=== PATIENT | male | born 1975 | race Caucasian/White ===

== ENCOUNTER 2024-02-26 05:50 | Emergency (ER) | payer OTHER, SELFPAY ==
--- NOTE | 2024-02-26 06:13 | ED.GENMED ---
History of Present Illness
General
Chief Complaint: Chest Pain
Source: patient
Exam Limitations: none
Time Seen by Provider: 02/26/24 06:03
Nursing documentation reviewed up to this point in time: agreed with
Travel History
Have you had any contact with someone who has COVID-19?: No
Do you have any symptoms of coronavirus? Fever > 100 degrees, chills, cough, shortness of breath, sore throat, loss of taste or smell, muscle aches, or headache?: No
History of Present Illness
History of Present Illness:
48-year-old male with no reported chronic medical issues who presents to the emergency room for evaluation of chest pain. Patient reports that he had onset at around 3:30 AM and symptoms have been constant since that time. He reports a burning
sensation in the left chest area, also reports 'feeling a knot' in the left shoulder and slightly in the left side of the neck although he says he has had this before related to musculoskeletal pain in the shoulder. He denies any significant
shortness of breath. He says he did have some nausea and an episode of dry heaving this morning. Denies abdominal pain. He denies any recent fevers or chills. Only other complaint on review of systems was that he will occasionally have a
'scratchy throat' particularly in the morning. He says that initially thought his symptoms could be heartburn but because they were persisting throughout the morning after about 2 hours he decided he should come in to be evaluated. He denies any
known history of heart problems.
Past History
Social History
Tobacco: Non-smoker
Personal:
Employment: Employed
Review of Systems
Review of Systems
All Other Systems: ROS reviewed and negative except as documented in HPI and ROS
Constitutional: Denies fever
Respiratory: Denies cough or trouble breathing
Cardiac: Reports chest pain; Denies palpitations
ABD/GI: Reports nausea and vomiting (Dry heave); Denies abdominal pain
Musculoskeletal: Reports joint pain (Radiation to the shoulder) and neck pain (Radiation of the neck); Denies back pain
Neurological: Denies dizzy or headache
Phy Exam
Physical Exam
Physical Exam:
General: Awake, alert; no acute distress
Head: Normocephalic, atraumatic
Eyes: Conjunctiva normal, sclera anicteric
Throat: Airway intact, handling secretions
Neck: Trachea midline, supple without meningismus
Lungs: Clear to auscultation bilaterally, no wheezing, rales, rhonchi
Heart: Regular rate and rhythm, no murmurs, gallops, or rubs
Abd: Soft, non distended, nontender
Neuro: Cranial nerves grossly intact, speech fluid
Skin: no rash
Extremities: No reproducible tenderness in the left shoulder; no edema in extremities, equal pulses in all extremities
Scores
Heart Failure Risk
Heart Failure Risk Score: Not Applicable
Heart Score for Chest Pain Patients
STEMI patient?: No
History: Slightly or Non-Suspicious
ECG: Normal
Age: >45 - <65 years
Risk Factors: 1 or 2 Risk Factors
Troponin: </= Normal Limit
Heart Score for Chest Pain Patients: 2
Heart Score Risk: 2.5% MACE over next 6 weeks
Withdrawal Assessment of Alcohol
Withdrawal Assessment Completed?: Not applicable
Course
Orders/Labs/Results
Orders:
Orders
02/26/24 05:51
EKG [Electrocardiogram (*1)] Urgent
Reason for Study: Chest Pain
EKG- Treatment ONCE
02/26/24 06:08
CR Chest - 2 Views Urgent
Comment:
Reason For Exam: chest pain
02/26/24 06:53
Complete Blood Count/With Diff Urgent
Comprehensive Metabolic Panel Urgent
Lipase Urgent
Troponin I Urgent
02/26/24 08:03
Mag Hydrox/Al Hydrox/Simeth [Maalox] 30 ml Phenobarb/Hyoscy/Atropine/Scop [] 10 ml Viscous Lidocaine 2% [Xylocaine Viscous Cup] 10 ml PO NOW
Pantoprazole [Protonix IV] 40 mg IV NOW STA
02/26/24 08:10
Mag Hydrox/Al Hydrox/Simeth [Maalox] 30 ml .ROUTE .STK-MED ONE
Phenobarb/Hyoscy/Atropine/Scop [] 10 ml .ROUTE .STK-MED ONE
Viscous Lidocaine 2% [Xylocaine Viscous Cup] 15 ml .ROUTE .STK-MED ONE
02/26/24 09:05
Troponin I Urgent
Abnormal Lab Results
02/26/24
06:53
MCV 79.8 L fL
(80.0-94.0)
Absolute Lymphs (auto) 1.0 L 10^3/uL
(1.2-3.4)
Neutrophils % 75.4 H %
(42.2-75.2)
Lymphocytes % 14.9 L %
(20.5-51.1)
Glucose 129 H mg/dl
(70-99)
ALT 93 H U/L
(0-50)
02/26/24 06:53
02/26/24 06:53
Vital Signs
Initial and Last Documented VS:
Initial Vital Signs
Pulse Resp Pulse Ox
86 20 92
02/26/24 06:43 02/26/24 06:43 02/26/24 06:43
Last Documented Vital Signs
Temp Pulse Resp BP Pulse Ox
36.8 C 86 14 135/93 92
02/26/24 07:27 02/26/24 09:45 02/26/24 09:45 02/26/24 08:00 02/26/24 09:45
MDM/Problems Addressed
Differential Diagnosis Includes:
GERD, angina/ACS, costochondritis, radiculopathy, pneumothorax/pneumonia
MDM/Problems Addressed:
48-year-old male presents for evaluation of burning left-sided chest pain with some slight radiation towards the shoulder and neck on the left that has been ongoing for the past 3 hours. Associated with an episode of dry heaving this morning.
Vital signs significant for hypertension but otherwise unremarkable. Physical exam as above. EKG shows no STEMI. Will place an IV check labs including a CBC and CMP. Will check troponins. Check lipase. Will check chest x-ray. Symptoms sound
like they could be from GERD will trial a GI cocktail and PPI. Monitor closely reassess after the above.
Initial labs reviewed: CBC unremarkable, CMP no clinically significant abnormalities. Initial troponin undetectable�repeat pending. Chest x-ray shows no acute disease. Continue to monitor.
Repeat troponin undetectable. Clinical reassessment vitals remained stable, patient remains well-appearing. Suspect this is likely GERD�consistent symptoms for hours with 2 undetectable troponins is inconsistent with ACS and there is no exertional
component, however he is obese I think it is reasonable to have him follow-up with cardiology on an outpatient basis in addition to his primary doctor. Will refer via chest pain hotline. Will start him on a PPI. Patient is comfortable with this
plan. Spoke with return precautions all questions answered.
Acute Exacerbation and/or Progression of Chronic Illness:
Acutely hypertensive
Acute Exacerbation and/or Progression of Chronic Illness: HTN
*Radiology
Radiology exam reviewed: preliminary read by ED provider
*Pulse Oximetry
Patient hypoxic: no
*EKG
Interpreted by ED Provider?: Yes
Heart Rate: 89
Rate: normal
Rhythm: sinus
Mcclelland: normal axis
Interval: normal interval
QRS Pattern: normal QRS
Ischemia: no ischemia
*Critical Care Note
Total Time (30-74mins, 75-104mins- exclusive of procedures): Not Applicable
Data Reviewed
Review of Other/Old Records Reveals: Labs and Records
Source: patient
ED Attending Note
-
Portions of this chart may have been created with voice recognition software.� Occasional wrong word or��sound alike� substitutions may have occurred due to the inherent limitations of voice recognition software.
Discharge Plan
Departure
Patient Disposition: Home (Routine Discharge)
Date of Disposition: 02/26/24
Time of Disposition: 09:44
Patient with high blood pressure during this ER visit?: No
Discharge Problem:
Chest pain
Instructions: Chest Pain CBC Follow Up
Prescriptions:
New
pantoprazole 40 mg tablet,delayed release (DR/EC)
40 mg PO DAILY Qty: 30 0RF
No Action
amoxicillin-pot clavulanate 1 TABLET tablet
1 tab PO Q12 Qty: 20 0RF
metronidazole 500 MG tablet
500 mg PO TID Qty: 30 0RF
levofloxacin 500 MG tablet
500 mg PO DAILY 10 Days 0RF
ondansetron 4 MG tablet,disintegrating
4 mg PO TIDPRN PRN (Reason: NAUSEA) Qty: 6 0RF
Referrals:
Kirk Foley MD [Family Provider] -
Eric Flynn MD [Active] - Call in 1-3 days for appt
Activity Restrictions/Additional Instructions:
Thank you for visiting the Emergency Department at [facility].
1. Please schedule a follow up appointment as directed. Call first thing tomorrow morning to make an appointment.
2. If indicated, please take your medications as instructed and indicated on discharge paperwork.
3. If any of your symptoms do not improve, or persist, or become more severe within 6-12 hours, please return to the emergency department for further care.
4. Please return to the emergency department if you develop a headache, neck pain/stiffness, fever greater than 100.4F, chest pain, shortness of breath, persistent nausea, vomiting, slurred speech, difficulty walking, numbness/tingling, weakness,
signs of infection or any other symptoms that are worrisome to you.
Please call [phone] if you have any questions.
Interventions
Interventions:
*Risk Screen - Suicide Last Done: 02/26/24 07:03
*General Assessment Last Done: 02/26/24 07:03
*Neglect/Abuse Screening Last Done: 02/26/24 07:03
ED- Fall Risk Assessment Last Done: 02/26/24 07:03
*ED COVID-19 Vaccine History Last Done: 02/26/24 07:03
ED- Cardiac Assessment Last Done: 02/26/24 07:03
Discharge Date and Time
Print Language: ARMENIAN
[2024-02-26 06:52] VITALS: BP 137/103
[2024-02-26 07:00] VITALS: BP 129/97
[2024-02-26 07:03] VITALS: BMI 36.9
[2024-02-26 07:22] LABS: % Basophils 0.7 % (0-2); % Eosinophils 1.2 % (0-6); % Immature Granulocytes 0.3 % (0-0.5); % Lymphocytes 14.9 % (20.5-51.1); % Monocytes 7.5 % (1.7-9.3); % Neutrophils 75.4 % (42.2-75.2); Absolute Basophils 0.1 10^3/uL (0-0.2); Absolute Eosinophils 0.1 10^3/uL (0-0.7); Absolute Monocytes 0.5 10^3/uL (0.1-0.6); Absolute Neutrophils 5.1 10^3/uL (1.4-6.5); Hematocrit 46.6 % (39.0-52.0); Hemoglobin 15.8 g/dL (13.0-18.0); Mean Corp Hgb Conc. 33.9 g/dL (33.0-37.0); Mean Corpuscular Hgb 27.1 pg (27.0-31.0); Mean Corpuscular Volume 79.8 fL (80.0-94.0); Mean Platelet Volume 9.5 fL (7.4-10.4); Nucleated Red Blood Cells % 0 % (-); Platelet Count 195 10^3/uL (130-400); Red Blood Cell Count 5.84 10^6/uL (4.70-6.10); Red Cell Dist. Width 14.3 % (11.5-14.5); White Blood Cell Count 6.7 10^3/uL (4.8-10.8)
[2024-02-26 07:27] VITALS: BP 147/89
[2024-02-26 07:32] LABS: ALT (SGPT) 93 U/L (0-50); AST (SGOT) 54 U/L (17-59); Albumin 4.8 g/dl (3.5-5.0); Alkaline Phosphatase 110 U/L (38-126); Blood Urea Nitrogen 14 mg/dl (9-20); Calcium 9.6 mg/dl (8.4-10.2); Carbon Dioxide 27 mmol/L (22-30); Chloride 105 mmol/L (98-107); Estimated Creatinine Clearance 96 ml/min; Glucose 129 mg/dl (70-99); Lipase 89 U/L (23-300); Potassium 4.2 mmol/L (3.5-5.1); Sodium 141 mmol/L (135-145); Total Bilirubin 0.6 mg/dl (0.2-1.3); Total Protein 7.5 g/dl (6.3-8.2); eGFR > 60.00
[2024-02-26 07:43] LABS: Troponin I < 0.012 ng/ml
[2024-02-26 08:00] VITALS: BP 135/93
[2024-02-26] MEDS: MAALOX 50 PO (08:14)
[2024-02-26] MEDS: PROTONIX IV 40 MG IV (08:14)
[2024-02-26 09:42] LABS: Troponin I < 0.012 ng/ml
[2024-02-26 09:53] VITALS: BP 141/108
== END 2024-02-26 10:07 | disposition home or self-care (01) ==
LOC: EMR 05:50
PROVIDERS: EMERGENCY PHYSICIAN Emergency Medicine; FAMILY PHYSICIAN Family Medicine
DX: R07.89 Other chest pain (principal); R11.2 Nausea with vomiting, unspecified; M25.512 Pain in left shoulder; R09.89 Other specified symptoms and signs involving the circulatory and respiratory systems; M54.2 Cervicalgia
CPT/HCPCS: 99284; 96374; 71046; 80053; 83690; 84484; 85025; 93005

== ENCOUNTER 2025-04-16 14:07 | Inpatient (IN) | payer OTHER, SELFPAY ==
[2025-04-16] VITALS (12 sets, daily range): BP systolic 133–187; BP diastolic 87–116; BMI 36.9; BMI 36.0
[2025-04-16 11:35] LABS: Hematocrit 46.9 % (39.0-52.0); Hemoglobin 15.6 g/dL (13.0-18.0); Mean Corp Hgb Conc. 33.3 g/dL (33.0-37.0); Mean Corpuscular Volume 83.0 fL (80.0-94.0); Nucleated Red Blood Cells % 0 % (-); Platelet Count 191 10^3/uL (130-400); Red Cell Dist. Width 13.9 % (11.5-14.5)
[2025-04-16 11:37] LABS: Urine Character Clear (Clear)
[2025-04-16 11:45] LABS: Urine Squamous Cell 0-2 /LPF (Few)
[2025-04-16 11:46] LABS: ALT (SGPT) 40 U/L (0-50); AST (SGOT) 28 U/L (17-59); Albumin 4.8 g/dl (3.5-5.0); Alkaline Phosphatase 66 U/L (38-126); Blood Urea Nitrogen 14 mg/dl (9-20); Calcium 9.5 mg/dl (8.4-10.2); Carbon Dioxide 26 mmol/L (22-30); Chloride 102 mmol/L (98-107); Glucose 115 mg/dl (70-99); Lipase 46 U/L (23-300); Potassium 4.4 mmol/L (3.5-5.1); Sodium 137 mmol/L (135-145); Total Protein 7.7 g/dl (6.3-8.2); eGFR > 60.00
--- NOTE | 2025-04-16 11:47 | ED.GENMED ---
History of Present Illness
General
Chief Complaint: Abdominal Pain
Source: patient
Exam Limitations: none
Time Seen by Provider: 04/16/25 11:24
Nursing documentation reviewed up to this point in time: agreed with
History of Present Illness
History of Present Illness:
Patient is a 49-year-old healthy male who presents to the emergency department with 2 days of abdominal pain. Patient states that vague abdominal discomfort began on evening which seems to be progressively worsening. He now describes pain
as a constant pain more localized to the right side of his abdomen. He denies any associated nausea, vomiting, diarrhea, or constipation. He reports very little appetite and has had nothing to eat since .
He denies any urinary complaints.
Patient was seen by his primary care provider this morning where he is found to have a low-grade temp in the office as well as significant abdominal pain on exam concerning for possible appendicitis. They were unable to obtain an outpatient CT scan
and therefore was referred to the emergency department for further evaluation.
No history of abdominal surgeries although he does have a history of diverticulitis.
Past History
Social History
Tobacco: Non-smoker
Personal:
Employment: Employed
Phy Exam
Physical Exam
Physical Exam:
Vitals: Tachycardic, otherwise vital signs stable. Afebrile
General: Patient is well appearing, no acute distress. Nontoxic
Skin: Warm and dry, no rashes or lesions
Head: Normocephalic, atraumatic
Eyes: Sclera nonicteric.
Throat: Protecting airway
Neck: Normal ROM, no cervical spine tenderness, no meningismus
Cardiac: Tachycardic, normal rhythm, no murmurs.
Pulm: Normal respiratory effort, no wheezes, rales, rhonchi heard on exam
Abdomen: Abdomen soft. Moderate tenderness in right mid abdomen/RLQ without rebound tenderness or guarding. Negative Garcia sign.
Extremities: No evidence of cyanosis or edema
Neuro: AAOx3. Grossly intact
Psychiatric: Normal affect.
Sepsis
Sepsis Screening
Sepsis Assessment: Severe Sepsis
Sepsis Screening: Lactate >2mmol/L
Sepsis Screen
Sepsis Screen: Severe Sepsis
Date: 04/16/25
Time: 13:00
Course
Orders/Labs/Results
Orders:
Orders
04/16/25 11:14
Electrocardiogram (*1) Urgent
Reason for Study: Abdominal Pain
EKG- Treatment ONCE
04/16/25 11:22
Complete Blood Count/With Diff Urgent
Comprehensive Metabolic Panel Urgent
Lipase Urgent
Urinalysis Reflex To Culture Urgent
Date Specimen was Collected: 04/16/25
Time Specimen was Collected: 11:14
Urine Microscopic Reflex Cult Urgent
04/16/25 11:39
0.9% Sodium Chloride 1000 ml [Nss] 1,000 ml IV BOLUS
Ketorolac [Toradol] 15 mg IV NOW STA
04/16/25 11:40
CT Abd/pelvis W Iv Cont Urgent
Comment:
Reason For Exam: right abdominal pain, +anorexia
04/16/25 12:09
Lactic Acid Q4H
Comment: CANCEL 2nd LACTIC ACID IF 1st LACTIC ACID IS LESS THAN 2
04/16/25 13:11
Piperacillin/Tazo 3.375 Gram [Zosyn] 3.375 gram in 50 ml IV NOW
04/16/25 13:28
Blood Culture Q30M
TUYET Source: Blood/Venous
Specimen Description:
04/16/25 13:39
Blood Culture Q30M
TUYET Source: Blood/Venous
Specimen Description:
04/16/25 13:55
SURGICAL CONSULT Routine
Consulting Provider: Erich Mckinney
Was physician already notified: Yes
Reason for consult: Sepsis, sigmoid diverticulitis with microperforation
04/16/25 13:56
Admit/Transfer Patient As Directed
Co-Sign Provider:
Level of Care: Inpatient admission
Assign to:: Medical/Surgical
Physician / Group: nic omalley
Diagnosis: sepsis 2/2 acute diverticulitis with microperforation
Reason for Hospitalization: sepsis 2/2 acute diverticulitis with microperforation
Expected length of stay greater than two midnights?: Yes
ELOS- Estimated Length of Stay in days: 3
I certify the patient meets the requirements for IP care: Yes
Code Status As Directed
Resuscitation Status: Full Code
04/16/25 14:00
PRN Pain Medication Management As Directed
May give lesser potent ordered pain med per pt: Yes
preference::
Protocol:: Medication orders for pain may be administered in a
manner that supports deferring to patient preference
when the pt is:
- Requesting an ordered lesser potent pain medication.
Least to most potent pain medications are defined
as: acetaminophen < NSAID < tramadol < opioids
(morphine, oxycodone, hydromorphone).
- Requesting a lesser dose of the same medication IF
ORDERED.
- Requesting a less intrusive route of administration
if both routes are prescribed by the provider (PO <
IV).
04/16/25 Dinner
Clear Liquid
At Your Request: Full Participation
04/16/25 15:51
Lactic Acid Q4H
Comment: CANCEL 2nd LACTIC ACID IF 1st LACTIC ACID IS LESS THAN 2
04/16/25 16:41
0.9% Sodium Chloride 1000 ml [Nss] 1,000 ml IV 100 mls/hr
Acetaminophen [Tylenol] 650 mg PO Q4HPRN PRN
Ketorolac [Toradol] 15 mg IV Q6HPRN PRN
04/16/25 16:41
Activity As Directed
Activity Level: As Tolerated
Vital Signs As Directed
Frequency: Per unit guidelines
DX Deep Vein Thrombosis Video Routine
04/16/25 18:00
Enoxaparin Sodium [Lovenox] 40 mg SC QPM
04/16/25 20:00
Piperacillin/Tazo 3.375 Gram [Zosyn] 3.375 gram in 50 ml IV Q6H
04/17/25 06:00
Complete Blood Count/With Diff IN AM
Comprehensive Metabolic Panel IN AM
04/18/25 06:00
Complete Blood Count/With Diff IN AM
Comprehensive Metabolic Panel IN AM
04/19/25 06:00
Complete Blood Count/With Diff IN AM
Comprehensive Metabolic Panel IN AM
Abnormal Lab Results
04/16/25 04/16/25
11:22 12:09
WBC 15.1 H 10^3/uL
(4.8-10.8)
Abs Immat Gran (auto) 0.1 H 10^3/uL
(0-0.05)
Absolute Neuts (auto) 12.6 H 10^3/uL
(1.4-6.5)
Absolute Monos (auto) 1.1 H 10^3/uL
(0.1-0.6)
Neutrophils % 83.5 H %
(42.2-75.2)
Lymphocytes % 8.3 L %
(20.5-51.1)
Glucose 115 H mg/dl
(70-99)
Lactic Acid 2.4 H mmol/L
(0.7-2.0)
Total Bilirubin 2.0 H mg/dl
(0.2-1.3)
Urine Ketones 3+ A
(Negative)
Ur Occult Blood Reflex 2+ A
(Negative)
Urine RBC 3-6 A /HPF
(0-2)
Urine Bacteria (Reflex) Few A
(Negative)
Urine Albumin (Reflex) 3+ A
(Neg - Trace)
04/16/25 11:22
04/16/25 11:22
Vital Signs
Initial and Last Documented VS:
Initial Vital Signs
Temp Pulse Resp BP Pulse Ox
98.5 F 120 16 187/116 100
04/16/25 11:10 04/16/25 11:10 04/16/25 11:10 04/16/25 11:10 04/16/25 11:10
Last Documented Vital Signs
Temp Pulse Resp BP Pulse Ox
99.6 F 108 18 157/95 98
04/16/25 17:26 04/16/25 17:26 04/16/25 17:26 04/16/25 17:26 04/16/25 17:26
MDM/Problems Addressed
Differential Diagnosis Includes:
Not limited to: Appendicitis, diverticulitis, viral illness, renal colic, cholecystitis, incarcerated hernia, etc.
MDM/Problems Addressed:
49-year-old male presenting with 2 days of lower abdominal pain, worse on the right side associated anorexia. No episodes of nausea, vomiting, or urinary symptoms. Patient febrile at PCPs office this morning to 100.4 however temp of 99.6 by my
evaluation. He is tachycardic however hypertensive. On exam�patient well-appearing in no distress. Abdomen is soft with moderate tenderness in suprapubic/right lower abdomen. No rebound tenderness or guarding. No focal tenderness McBurney's
point. Negative Garcia sign. Patient tachycardic with normal rhythm. Lungs clear bilaterally. Differential broad however given history of fever and abdominal pain�concern for intra-abdominal infection including appendicitis, diverticulitis,
intra-abdominal abscess, etc. ED plan: Labs, lactic acid, UA, CT scan abdomen/pelvis. Will give IV fluids and treat pain.
Update: Labs reviewed. Leukocytosis of 15.1. Chemistry unremarkable other than mild elevation in total bilirubin. Initial lactic of 2.4. Urine shows no evidence of infection. CT scan shows findings of acute sigmoid diverticulitis with contained
microperforation.
Patient does meet criteria given history of fever with tachycardia, leukocytosis, and evidence of complicated diverticulitis. Will admit for IV antibiotics and further management. Zosyn given in ED. Patient excepted to hospitalist service in
stable condition. Colorectal aware
Chronic conditions affecting care:
History of diverticulitis
Acute Exacerbation and/or Progression of Chronic Illness:
Acute sigmoid diverticulitis
*Radiology
Radiology exam reviewed: radiology read reviewed
*Pulse Oximetry
SaO2: 100
Oxygen Mode of Delivery: Room air
Patient hypoxic: no
*EKG
Interpreted by ED Provider?: Yes
EKG Intrepretation Date: 04/16/25
Interpretation: abnormal
Comparison EKG: no changes
Heart Rate: 114
Rate: tachycardiac
Rhythm: sinus
Sigourney: normal axis
Interval: normal QT interval
QRS Pattern: normal QRS
Ischemia: no ischemia
*Lasting Machine Operator Interpretation
Rate: Lasting Machine Operator- N/A
*Critical Care Note
Total Time (30-74mins, 75-104mins- exclusive of procedures): Not Applicable
Patient Management
Discussion with other providers: Hospitalist
Escalation/DeEscalation of care consider admission/obs:
Admit for IV abx
ED Attending Note
-
Portions of this chart may have been created with voice recognition software.� Occasional wrong word or��sound alike� substitutions may have occurred due to the inherent limitations of voice recognition software.
Discharge Plan
Departure
Patient Disposition: Admit
Date of Disposition: 04/16/25
Time of Disposition: 13:16
Presentation/result/management discussed w/ accepting MD/DO: Hospitalist
Discharge Problem:
Sepsis, Diverticulitis of large intestine with complication
Interventions
Interventions:
*Risk Screen - Suicide Last Done: 04/16/25 16:55
*General Assessment Last Done: 04/16/25 12:00
*Neglect/Abuse Screening Last Done: 04/16/25 11:10
*ED- Fall Risk Assessment Last Done: 04/16/25 12:00
*ED COVID-19 Vaccine History Last Done: 04/16/25 12:00
*Nursing Disposition Last Done: 04/16/25 16:37
EX-Wxrfkd-Kryxqimoxn Assessment Last Done: 04/16/25 12:00
Discharge Date and Time
Discharge Date/Time: 04/16/25 16:37
[2025-04-16] MEDS: NSS 1000 IV ×2 (12:08→17:35)
[2025-04-16] MEDS: TORADOL 15 MG IV ×2 (12:09→18:59)
--- NOTE | 2025-04-16 13:31 | HPS.HSE ---
Addendum entered and electronically signed by NALDO Stein 04/16/25 14:17:
- Colorectal surgery consulted Dr. Mckinney
Original Note:
Family Physician
-
Family Physician: Kirk Foley
Chief Complaint
-
Abdominal pain, decreased appetite
History of Present Illness
49-year-old male complaining of 2 days of abdominal pain which has become progressively worse. The patient reports pain seems to be more localized to the right side of his abdomen with decreased appetite since . He was seen earlier today
at PCP office had 100.4 F temp. He denies headache, chills, nausea, vomiting, diarrhea, constipation, chest pain, palpitations, cough, shortness of breath, urinary symptoms. He had CT in the ER showing acute sigmoid diverticulitis with contained
microperforation he was also noted to be septic. The patient reports history of diverticulitis treated 10 years ago with antibiotics however did not have any follow-up colonoscopy. He states last year he had a Cologuard which was negative he does
follow with GI for his acid reflux and takes Protonix as needed. He has past medical history of GERD, diverticulitis.
Medical History
Past Medical History
Past Medical History: Reports GERD and Other
Additional Past Medical History:
Diverticulitis age 39
Past Surgical History: Reports None
Social History
Tobacco: Non-smoker
Alcohol: None
Drug: None
Employment: Employed
Family History
Family History: Other (Father history diverticulosis/diverticulitis, HTN, DM 2, A-fib, mom healthy, sister hypertension)
Allergies / Home Medications
Allergies reflects when Allergies were last updated in [employer].
Home Medications with original date entered in [employer]
Allergy/Medication List:
Allergies
Allergy/AdvReac Type Severity Reaction Status Date / Time
No Known Allergies Allergy Verified 04/16/25 11:10
Home Medications
acetaminophen 325 mg tablet 650 mg PO DAILYPRN PRN headache 04/16/25
ibuprofen 200 mg tablet 400 mg PO DAILYPRN PRN mild pain 04/16/25
pantoprazole 40 mg tablet,delayed release 40 mg PO DAILY PRN gerd 04/16/25
Review of Systems
-
History Source: Patient
A 12 point ROS was completed and negative except as noted: Yes
Constitutional: Reports Fever; Denies Chills
EENT: Denies Sore Throat or Runny Nose
Respiratory: Denies Cough or Trouble Breathing
Cardiac: Denies Chest Pain, Diaphoresis, Palpitations or Syncope
Abdomen/GI: Reports Abdominal Pain (Lower suprapubic area to right side) and Other (Decreased appetite); Denies Nausea, Vomiting, Diarrhea, Constipated or Bloody Stools
: Denies Dysuria, Frequency, Flank Pain, Incontinence, Difficulty Voiding or Urgency
Musculoskeletal: Denies Joint Pain or Edema
Skin: Denies Itching or Rash
Neurological: Denies Dizzy or Headache
Endocrine: Reports No Symptoms
Hematologic/Lymphatic: Reports No Symptoms
Psych: Reports Calm
Physical Exam
Vital Signs
Vital Signs
Temp Pulse Resp BP Pulse Ox
99.5 F 109 19 133/95 96
04/16/25 11:45 04/16/25 13:00 04/16/25 13:00 04/16/25 13:00 04/16/25 13:00
Physical Exam
General: Conversant; No Pain, Fever or Chills
HEENT: NormoCephalic, Anicteric, Moist mucous membranes, PERRLA, [place]ord Conjunctivae and No Ptosis
Respiratory: Clear; No Wheezes, Rales or Rhonchi
Cardiac: S1/S2 and Tachycardia (Sinus); No Murmur, Rub, Gallop or Peripheral Edema
Breast: Deferred by me
GI: Soft, Normal Bowel Sounds, Tender (Suprapubic to right side) and Other (Protuberant abdomen)
Rectal: Deferred by Provider
Genito-urinary: Deferred by me
Musculoskeletal: No Clubbing, No Cyanosis, No Edema and Other (Short extremities, shortened hand digits bilateral hands? Dwarfism)
Skin: Warm and Dry; No Rash
Neuro: AO x 3, No Motor Deficits, Nonfocal/grossly intact, Cranial Nerves Intact and No Sensory Deficits; No Slurred Speech, Facial Droop, Tremors or Sedated
Psych: Calm
Laboratory Results
-
04/16/25 11:22
04/16/25 11:22
Laboratory Results
Lactic Acid 2.4 mmol/L (0.7-2.0) H 04/16/25 12:09
Total Bilirubin 2.0 mg/dl (0.2-1.3) H 04/16/25 11:22
AST 28 U/L (17-59) 04/16/25 11:22
ALT 40 U/L (0-50) 04/16/25 11:22
Alkaline Phosphatase 66 U/L (38-126) 04/16/25 11:22
Lipase 46 U/L (23-300) 04/16/25 11:22
Impression/Plan
-
Impression/plan:
Admit to MedSurg
#Sepsis 2/2 acute sigmoid diverticulitis with contained microperforation
- WBC 15.1 with left shift, 99F(prior reported 100.4 F at PCP office), HR 111, 133/95
- IV NSS 1 L
- IV Zosyn
- IV Toradol
- Consult general surgery
- Follow CBC, CMP
CT abdomen pelvis with IV contrast:
1. Mild hepatomegaly with diffuse fatty liver.
2. ACUTE SIGMOID DIVERTICULITIS with accompanying contained microperforation (extraluminal bubbles of air) without accompanying well-formed abnormal focal fluid collection, intestinal obstruction or free air.
#Hepatomegaly per CT
Normal LFTs
#GERD
Continue Protonix 40 mg daily
DVT prophylaxis
Subcu Lovenox
Full code
[2025-04-16] MEDS: ZOSYN 50 IV ×2 (14:04→18:59)
--- NOTE | 2025-04-16 14:20 | W.PN.UPDATE ---
Update Note
Progress Note Update
This is an addendum to the H&P written by Ute Mcnulty on 04/16/2025. �Patient seen and examined independently with LIBERAL ARTS DEAN.
49-year-old male past medical history of prior diverticulitis, GERD, presenting with 2 days of suprapubic/right-sided abdominal pain with decreased appetite.
Vital signs showed tachycardia. �EKG shows sinus tachycardia.
Labs show leukocytosis. �Lactic acid 2.4. �Urinalysis negative.
CT abdomen pelvis shows acute sigmoid diverticulitis with accompanying contained microperforation without well-formed abnormal fluid collection, obstruction or free air.
Clear liquids, Zosyn, colorectal surgery consulted.
--- NOTE | 2025-04-16 14:29 | CM ---
CM reviewed chart and met with pt bedside in ED. Lives in 2 story home, 1 GIGI front, no GIGI garage. Son lives with him.
Independent in ADLs, personal care and ambulation at baseline, no assistive devices, no DME.
Confirms prescription coverage.
No hx VN/SNF.
PCP: Kirk Foley
Pharmacy: [facility]
Anticipate home, no needs. CM will continue to follow for any discharge planning needs.
--- NOTE | 2025-04-16 15:30 | EDRN ---
Pt OOB to BR at this time.
--- NOTE | 2025-04-16 15:45 | EDRN ---
Lactic #2 drawn and sent and #1 was 2.4 at this time.
--- NOTE | 2025-04-16 16:44 | CON.CRS ---
Consultation
-
Date/Time Consultation Performed: 04/16/25 [id number]
Medical History
-
Chief Complaint: Left pelvic pain
History of Present Illness:
49 yo male with a h/o GERD and sigmoid diverticulitis in 2015 with no prior colonoscopy although he reports doing a Cologuard study about a year ago which was normal who presents today through the ED with left lower quadrant/left pelvic abdominal
pain which began about 2 days ago accompanied by anorexia. He denies associated nausea, vomiting or bowel changes. He denies fevers or chills. He denies voiding dysfunction. On exam, there is focal tenderness to the LLQ.
Past Medical History
Past Medical History: Diverticulitis (2016), GERD and Other (Rhabo, obesity)
Past Surgical History: None
Social History
Tobacco: Non-Smoker
Alcohol: None
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
Family History
Family History: Reviewed & Not Pertinent
Allergies / Home Medications
Allergy/AdvReac Type Severity Reaction Status Date / Time
No Known Allergies Allergy Verified 04/16/25 11:10
�Medication �Instructions �Recorded �Confirmed �Type
acetaminophen 325 mg tablet 650 mg PO DAILYPRN PRN headache 04/16/25 04/16/25 History
ibuprofen 200 mg tablet 400 mg PO DAILYPRN PRN mild pain 04/16/25 04/16/25 History
pantoprazole 40 mg tablet,delayed 40 mg PO DAILY PRN gerd 04/16/25 04/16/25 History
release
Review of Systems
-
History Source: Patient
All other systems: Negative unless noted
A 10 point review of systems was completed, and was negative except as per HPI.
Physical Exam
Vital Signs
Temp 99.5 F 04/16/25 11:45
Pulse 106 04/16/25 16:00
Resp Rate 24 04/16/25 16:00
Blood pressure 137/93 04/16/25 16:00
SaO2 96 04/16/25 16:00
04/15/25 04/16/25 04/17/25
06:59 06:59 06:59
Actual Weight 88.5 kg
Body Mass Index (BMI) 36.9
Lab Results / Allergies
04/16/25 11:22
04/16/25 11:22
WBC 15.1 10^3/uL (4.8-10.8) H 04/16/25 11:22
Hgb 15.6 g/dL (13.0-18.0) 04/16/25 11:22
Hct 46.9 % (39.0-52.0) 04/16/25 11:22
Plt Count 191 10^3/uL (130-400) 04/16/25 11:22
Abs Immat Gran (auto) 0.1 10^3/uL (0-0.05) H 04/16/25 11:22
Neutrophils % 83.5 % (42.2-75.2) H 04/16/25 11:22
Allergy/AdvReac Type Severity Reaction Status Date / Time
No Known Allergies Allergy Verified 04/16/25 11:10
Physical Exam
General: Well Developed and Well Nourished
HEENT: Normocephalic and Moist Mucous Membranes
Respiratory: Non Labored Respirations
GI: Soft, Non Distended, Tender (LLQ) and Obese
Skin: Warm and Dry
Neuro: Awake, Alert and AO x 3
Psych: Calm
Data Reviewed
-
CT Scan: Image Personally Visualized and interpreted, Report Reviewed by me, Discussed with Physician and Discussed with Patient
Labs: Labs Reviewed by me, Discussed with Physician and Discussed with Patient
Old Records: Reviewed
Assessment / Plan
-
49 yo male with a h/o diverticulitis in 2016 who presents with 2 days of LLQ pain with anorexia. BP stable but with tachycardia, no fevers. Leukocytosis present with wbc of 15.1. CT imaging reviewed which is notable for sigmoid diverticulitis with
microperforation which is contained and without associated abscess. No pneumoperitoneum or evidence of bowel threat or compromise. Focal tenderness on exam.
Plan:
Admit for IV abx, continue zosyn q6h
Ok for clears, change to NPO if pain increases
IVF as per primary team
Analgesics
No plans for emergent surgery at this time, will follow for improvement with bowel rest and IV abx
Would recommend eventual colonoscopy in follow up.
--- NOTE | 2025-04-16 17:21 | TRANSFER ---
Pt transferred from ED to [facility] via stretcher at 1645. Slightly tachycardic, HR 108, temp 99.6. Pain controlled at this time. Pt walked from stretcher to bed independently. Admission and assessment completed by this RN. Pt oriented to room, call
[facility] within reach.
[2025-04-16] MEDS: LOVENOX 40 MG SC (17:35)
[2025-04-17] MEDS: ZOSYN 50 IV ×4 (02:00→19:33)
[2025-04-17] MEDS: NSS 1000 IV ×2 (03:55→14:25)
[2025-04-17 06:06] LABS: Hematocrit 40.4 % (39.0-52.0); Hemoglobin 13.4 g/dL (13.0-18.0); Mean Corp Hgb Conc. 33.2 g/dL (33.0-37.0); Mean Corpuscular Volume 83.0 fL (80.0-94.0); Nucleated Red Blood Cells % 0 % (-); Platelet Count 162 10^3/uL (130-400); Red Cell Dist. Width 13.8 % (11.5-14.5)
[2025-04-17 06:36] LABS: ALT (SGPT) 32 U/L (0-50); AST (SGOT) 24 U/L (17-59); Albumin 3.6 g/dl (3.5-5.0); Alkaline Phosphatase 58 U/L (38-126); Blood Urea Nitrogen 12 mg/dl (9-20); Calcium 8.7 mg/dl (8.4-10.2); Carbon Dioxide 23 mmol/L (22-30); Chloride 107 mmol/L (98-107); Estimated Creatinine Clearance 102 ml/min; Glucose 95 mg/dl (70-99); Potassium 3.9 mmol/L (3.5-5.1); Sodium 138 mmol/L (135-145); Total Protein 6.1 g/dl (6.3-8.2); eGFR > 60.00
[2025-04-17 07:05] VITALS: BP 142/96
--- NOTE | 2025-04-17 11:39 | W.PN.HOSP.TC ---
Today's Communication/Plan
-
maintain on abx
maintain NPO
monitor for signs of acute abd
Assessment / Plan
Assessment / Plan
CT abdomen pelvis with IV contrast:
1. Mild hepatomegaly with diffuse fatty liver.
2. ACUTE SIGMOID DIVERTICULITIS with accompanying contained microperforation (extraluminal bubbles of air) without accompanying well-formed abnormal focal fluid collection, intestinal obstruction or free air.
#Sepsis 2/2 acute sigmoid diverticulitis with contained microperforation
- WBC 15.1 with left shift, trended down
- maintain on IV Zosyn
- CRS evaluated and recommended continual bowel rest and antibiotic therapy. May require surgery if any complication arises
- Patient will require colonoscopy postdischarge. Had Cologuard done by primary care which was normal
#Hepatomegaly per CT
-Normal LFTs
#GERD
-Continue Protonix 40 mg daily
DVT prophylaxis- Subcu Lovenox
Full code
Anticipated Discharge: 24 - 48 hours
Subjective/Interval History
-
Date of Service: April 17, 2025
Denies any lower abdominal discomfort/nausea
Afebrile overnight
Objective Data
-
Labs:
Laboratory Results
04/17/25
05:00
WBC 10.3
Hgb 13.4
Hct 40.4
Plt Count 162
Sodium 138
Potassium 3.9
Chloride 107
Carbon Dioxide 23
BUN 12
Creatinine 0.8
Glucose 95
Calcium 8.7
Total Bilirubin 1.3
AST 24
ALT 32
Alkaline Phosphatase 58
Vital Signs:
Vital Signs
Temp Pulse Resp BP Pulse Ox
98.6 F 100 20 142/96 95
04/17/25 07:05 04/17/25 07:05 04/17/25 07:05 04/17/25 07:05 04/17/25 07:05
I&O
04/16/25 04/17/25 04/18/25
06:59 06:59 06:59
Intake Total 2319
Balance 2319
Review of Systems
-
Respiratory: Reports No Symptoms
Cardiac: Reports No Symptoms
Abdomen/GI: Reports No Symptoms
Physical Exam
-
General: No Apparent Distress and Comfortable
HEENT: Negative Oxygen
GI: Soft, Nontender, Nondistended and Normal Bowel Sounds
Musculoskeletal: No Edema
Neuro: Awake, Alert, Oriented, No Motor Deficits and Nonfocal/Grossly Intact
Psych: Calm
[2025-04-17 15:45] VITALS: BP 132/90
--- NOTE | 2025-04-17 16:22 | W.PN.CRS1 ---
Today's Communication / Plan
-
Advance diet
Assessment/Plan
-
49 yo male with sigmoid diverticulitis with microperforation with prior episode in 2016.
HR still in low 100s, BP stable, no fevers
Leukocytosis of 15.1 on admission now resolved with WBC of 10.3
Pain nearly resolved, tolerating clears
Plan:
Advance to LRD
Analgesics as needed
Continue IV zosyn
Medical management as per primary team
No plans for emergent surgery at this time.
Pending patient course, may be ready for d/c on oral ABX as soon as tomorrow
Subjective Data
Subjective Data
Date of Service: April 17, 2025
Pt seen and examined at bedside with Dr. Mckinney. Denies n/v. Tolerating diet. Minimal to no pain. Feeling much better than previous. Having some loose stools.
Objective Data
-
Vital Signs
Temp Pulse Resp BP Pulse Ox
98.6 F 100 20 142/96 95
04/17/25 07:05 04/17/25 07:05 04/17/25 07:05 04/17/25 07:05 04/17/25 07:05
Intake & Output
04/16/25 04/17/25 04/18/25
06:59 06:59 06:59
Intake Total 2320 / 2320
Balance 2320 / 2320
Intake:
Oral fluids 1020 / 1020
IV fluids (Total) 1200 / 1200
IV piggybacks 100 / 100
Other:
Number of approximated MODERATE 2
amounts of urine
Number of approximated LARGE 4
amounts of urine
Lab Results
04/17/25 05:00
04/17/25 05:00
Physical Exam
-
General: No Acute Distress
HEENT: Grossly Normal
Abdomen: Soft, Non Distended and Tender (very mild to LLQ)
Skin: Warm and Dry
[2025-04-17] MEDS: LOVENOX 40 MG SC (18:15)
[2025-04-17 22:43] VITALS: BP 130/82
[2025-04-18] MEDS: NSS IV (00:48)
[2025-04-18] MEDS: NSS 1000 IV ×2 (01:52→11:43)
[2025-04-18] MEDS: ZOSYN 50 IV ×3 (01:52→13:27)
[2025-04-18 07:15] LABS: Hematocrit 41.5 % (39.0-52.0); Hemoglobin 13.9 g/dL (13.0-18.0); Mean Corp Hgb Conc. 33.5 g/dL (33.0-37.0); Mean Corpuscular Volume 82.7 fL (80.0-94.0); Nucleated Red Blood Cells % 0 % (-); Platelet Count 175 10^3/uL (130-400); Red Cell Dist. Width 13.7 % (11.5-14.5)
[2025-04-18 07:55] LABS: ALT (SGPT) 40 U/L (0-50); AST (SGOT) 31 U/L (17-59); Albumin 3.8 g/dl (3.5-5.0); Alkaline Phosphatase 66 U/L (38-126); Blood Urea Nitrogen 5 mg/dl (9-20); Calcium 8.5 mg/dl (8.4-10.2); Carbon Dioxide 25 mmol/L (22-30); Chloride 108 mmol/L (98-107); Estimated Creatinine Clearance 116 ml/min; Glucose 114 mg/dl (70-99); Potassium 3.9 mmol/L (3.5-5.1); Sodium 141 mmol/L (135-145); Total Protein 6.3 g/dl (6.3-8.2); eGFR > 60.00
[2025-04-18 07:59] VITALS: BP 140/101
--- NOTE | 2025-04-18 11:28 | CM ---
Chart reviewed. Per hospitalist, patient can d/c home today
No CM needs at this time
Plan: Home today, no needs
--- NOTE | 2025-04-18 12:15 | W.PN.HOSP.TC ---
Addendum entered and electronically signed by Du Ken MD 04/18/25 15:33:
[id number]
Original Note:
Today's Communication/Plan
-
LRD
Augmentin - x13 more days - abx course 14 days total
F/u CRS outpatient
Assessment / Plan
Assessment / Plan
CT abdomen pelvis with IV contrast:
1. Mild hepatomegaly with diffuse fatty liver.
2. ACUTE SIGMOID DIVERTICULITIS with accompanying contained microperforation (extraluminal bubbles of air) without accompanying well-formed abnormal focal fluid collection, intestinal obstruction or free air.
#Sepsis 2/2 acute sigmoid diverticulitis with contained microperforation
- Improved with abx
- Tolerated LRD, with BM; abdomen soft, non distended
- DC with augmentin x 13 more days to complete 14 day course
- F/u CRS outpatient
-Cont LRD x 2 weeks
- Patient will require colonoscopy postdischarge. Had Cologuard done by primary care which was normal
#Hepatomegaly per CT
-Normal LFTs
-weight loss education
#GERD
-Continue Protonix 40 mg daily
DVT prophylaxis- Subcu Lovenox
Full code
More than 30 minutes spent in discharge including
Final examination of the patient
Summarizing hospital stay
Instructions for continuing care to all relevant caregivers
Preparation of discharge records, prescriptions, and referral forms
Total time spent (in minutes): 36
Anticipated Discharge: Today
Subjective/Interval History
-
Date of Service: April 18, 2025
tolerating LRD
Objective Data
-
Labs:
Laboratory Results
04/18/25
06:46
WBC 7.2
Hgb 13.9
Hct 41.5
Plt Count 175
Sodium 141
Potassium 3.9
Chloride 108 H
Carbon Dioxide 25
BUN 5 L
Creatinine 0.7
Glucose 114 H
Calcium 8.5
Total Bilirubin 0.7
AST 31
ALT 40
Alkaline Phosphatase 66
Vital Signs:
Vital Signs
Temp Pulse Resp BP Pulse Ox
98.4 F 81 16 140/101 96
04/18/25 07:59 04/18/25 07:59 04/18/25 07:59 04/18/25 07:59 04/18/25 07:59
I&O
04/17/25 04/18/25 04/19/25
06:59 06:59 06:59
Intake Total 2320 / 2320 4040 / 4040
Balance 2320 / 2320 4040 / 4040
Review of Systems
-
Respiratory: Reports No Symptoms
Cardiac: Reports No Symptoms
Abdomen/GI: Reports No Symptoms
Physical Exam
-
General: No Apparent Distress and Comfortable
HEENT: Negative Oxygen
GI: Soft, Nontender, Nondistended and Normal Bowel Sounds
Musculoskeletal: No Edema
Neuro: Awake, Alert, Oriented, No Motor Deficits and Nonfocal/Grossly Intact
Psych: Calm
Data Reviewed
-
CT Scan: Report Reviewed by me
Labs: Labs Reviewed by me
--- NOTE | 2025-04-18 12:23 | W.DS.TRANS ---
DC Summary - [employer]
-
Discharge Instructions:
Discharge Diagnosis/Procedures Sepsis 2/2 acute sigmoid diverticulitis with
contained microperforation
Diet Low Fiber
Additional Diets Low fiber diet for the next 2-3 weeks then
gradually add more fiber back into your diet
Activity As tolerated
Blood Work cbc and cmp in 1 week with pcp
Others Tests Abdominal Imaging as per Colorectal surgery
outpatient
Instructions: Low-fiber diet
Stand-Alone Forms:
Changes to Home Medications: Yes
Discharge Medications:
DC Medications w/original date entered in [facility]
acetaminophen 325 mg tablet 650 mg PO DAILYPRN PRN headache 04/16/25
pantoprazole 40 mg tablet,delayed release 40 mg PO DAILY PRN gerd 04/16/25
amoxicillin 875 mg-potassium clavulanate 125 mg tablet 1 tab PO Q12H 13 days #26 tabs 04/18/25
Home Medication Changes
amoxicillin 875 mg-potassium clavulanate 125 mg tablet 1 tab PO Q12H 13 days #26 tabs 04/18/25
Pending Results: No
--- NOTE | 2025-04-18 12:49 | W.PN.CRS1 ---
Today's Communication / Plan
-
ok for d/c from our perspective
finish course of abx
Assessment/Plan
-
49 yo male with sigmoid diverticulitis with microperforation with prior episode in 2016.
WBC: 7.2, vitals normal
Plan:
-Continue low residue diet
-Pain meds as needed
-Continue IV zosyn
-Medical management as per primary team
-No plans for emergent surgery at this time.
-Okay for discharge from our perpsective
Subjective Data
Subjective Data
Date of Service: April 18, 2025
Patient currently has no complaints.
Objective Data
-
Vital Signs
Temp Pulse Resp BP Pulse Ox
98.4 F 81 16 140/101 96
04/18/25 07:59 04/18/25 07:59 04/18/25 07:59 04/18/25 07:59 04/18/25 07:59
Intake & Output
04/17/25 04/18/25 04/19/25
06:59 06:59 06:59
Intake Total 2320 / 2320 4040 / 4040
Balance 2320 / 2320 4040 / 4040
Intake:
Oral fluids 1020 / 1020 1240 / 1240
IV fluids (Total) 1200 / 1200 2500 / 2500
IV piggybacks 100 / 100 300 / 300
Other:
Number of approximated MODERATE 2
amounts of urine
Number of approximated LARGE 4 3
amounts of urine
Lab Results
04/18/25 06:46
04/18/25 06:46
Physical Exam
-
General: No Acute Distress and AOx3
Abdomen: Soft, Non Distended and Non Tender
Skin: Warm and Dry
[2025-04-18 14:59] VITALS: BP 127/87
== END 2025-04-18 17:09 | disposition home or self-care (01) | DRG 872 ==
LOC: 4 WEST ACU 14:07
PROVIDERS: Clinical Nurse Specialist Family Health; Physician Assistant; Student in an Organized Health Care Education/Training Program; ADMITTING PHYSICIAN Hospitalist; ATTENDING PHYSICIAN Internal Medicine; CONSULT PHYSICIAN Surgery; EMERGENCY PHYSICIAN Emergency Medicine; FAMILY PHYSICIAN Family Medicine
DX: A41.9 Sepsis, unspecified organism (principal); K57.20 Diverticulitis of large intestine with perforation and abscess without bleeding; K21.9 Gastro-esophageal reflux disease without esophagitis; Z83.3 Family history of diabetes mellitus; Z79.899 Other long term (current) drug therapy; K76.0 Fatty (change of) liver, not elsewhere classified; E66.9 Obesity, unspecified; Z82.49 Family history of ischemic heart disease and other diseases of the circulatory system; Z68.36 Body mass index [BMI] 36.0-36.9, adult
CPT/HCPCS: 74177; 80053; 81003; 81015; 83605; 83690; 85025; 87040; 93005; 96361; 96365; 96375; 99285; Q9967

== ENCOUNTER 2025-06-22 06:16 | Day surgery (SDC) | payer OTHER, SELFPAY | END 2025-06-22 08:33 | disposition home or self-care (01) | LOC: GI 06:16 | PROVIDERS: ATTENDING PHYSICIAN Surgery; FAMILY PHYSICIAN Family Medicine | DX: Z12.11 Encounter for screening for malignant neoplasm of colon (principal); K57.32 Diverticulitis of large intestine without perforation or abscess without bleeding; K57.30 Diverticulosis of large intestine without perforation or abscess without bleeding | CPT/HCPCS: G0121 ==